=== PATIENT | male | born 1955 | race Caucasian/White ===

== ENCOUNTER 2017-10-17 03:51 | Inpatient (IN) | payer BC ==
[2017-10-17] MEDS: ATROPINE 0.5 MG/5 ML DISP.SYRIN. IV ×2 (03:54→04:03)
[2017-10-17] MEDS: EPINEPHrine SYRINGE 1 MG/10 ML SYRINGE IV (03:54)
[2017-10-17] MEDS ORDERED: NOREPINEPHRINE PREMIX 8 MG/250 ML BAG. IV (04:00)
[2017-10-17] MEDS: CALCIUM CHLORIDE 1,000 MG/10 ML DISP.SYRIN IV (04:06)
[2017-10-17] MEDS: SODIUM BICARB ADULT 8.4% 50 MEQ/50 ML DISP.SYRIN. IV (04:07)
[2017-10-17] MEDS ORDERED: NOREPINEPHRIN PREMIX 250 ML IV (04:13)
[2017-10-17] MEDS: IV NORMAL SALINE 1000ML BAG 1,000 ML IV ×10 (04:18→21:53)
[2017-10-17 04:20] LABS: BASE EXCESS ABG -10 mmol/L (-3-3); HCO3 ABG 19 mmol/L (21-28); PCO2 ABG 51 mmHg (35-46); PO2 ABG 167 mmHg (65-108); SAT O2 ABG 98 % (92-99)
[2017-10-17] MEDS: NOREPINEPHRIN PREMIX 250 ML IV (04:24)
[2017-10-17] MEDS ORDERED: fentaNYL PF VIAL 100 MCG/2 ML VIAL IV (04:30)
[2017-10-17] MEDS ORDERED: 0.9 % SODIUM CHLORIDE 10 ML DISP.SYRIN. IV (04:30)
[2017-10-17] MEDS ORDERED: MINERAL OIL/PETROLATUM,WHITE OPHTH OINT 3.5GM TUBE. OU (04:30)
[2017-10-17] MEDS ORDERED: VECURONIUM BOLUS 10 MG VIAL. IV (04:30)
[2017-10-17 04:53] LABS: AGAP ISTAT 17 mmol/L (6-14); BUN ISTAT 82 mg/dL (8-26); CHLORIDE ISTAT 112 mmol/L (98-110); CREATININE ISTAT 3.3 mg/dL (0.5-1.4); GLUCOSE ISTAT 343 mg/dL (70-99); HEMATOCRIT ISTAT 42 % (37-52); HEMOGLOBIN ISTAT 14.3 g/dL (14-18); ION CA ISTAT 0.94 mmol/L (1.13-1.32); POTASSIUM ISTAT 4.8 mmol/L (3.5-5.0); SODIUM ISTAT 139 mmol/L (135-145); TOT CO2 ISTAT 15 mmol/L (23-32)
[2017-10-17 04:55] LABS: BASO # 0.1 x10^3/uL (0.0-0.2); BASO % 1 % (0-3); EOS % 0 % (0-3); HEMATOCRIT 39.1 % (39.0-53.0); HEMOGLOBIN 12.8 g/dL (13.0-17.5); LYMPH # 1.1 x10^3/uL (1.0-4.8); LYMPH % 9 % (24-48); MEAN CORPUSCULAR HEMOGLOBIN 31 pg (25-35); MEAN CORPUSCULAR HGB CONC 33 g/dL (31-37); MEAN CORPUSCULAR VOLUME 93 fL (79-100); MONO # 0.2 x10^3/uL (0.0-1.1); MONO % 2 % (0-9); NEUT % 88 % (31-73); PLATELET COUNT 226 x10^3/uL (140-400); RED CELL DISTRIBUTION WIDTH 13.5 % (11.5-14.5); WHITE BLOOD COUNT 12.4 x10^3/uL (4.0-11.0)
[2017-10-17 04:59] LABS: TROPONIN BY ISTAT 0.07 ng/ml (<0.08)
[2017-10-17] MEDS: IOHEXOL 300 MG/ML 100ML VIAL. IV (05:00)
[2017-10-17] MEDS ORDERED: cefTRIAXone SODIUM 2 GM in IV DEXTROSE 5% 100 ML IV (05:00)
[2017-10-17 05:04] LABS: ADD MAN DIFF? YES
[2017-10-17 05:09] LABS: ANION GAP 17 (6-14); BLOOD UREA NITROGEN 87 mg/dL (8-26); BUN/CREATININE RATIO 23 (6-20); CALCIUM 9.3 mg/dL (8.5-10.1); CARBON DIOXIDE 22 mmol/L (21-32); CHLORIDE 103 mmol/L (98-107); CREATININE 3.8 mg/dL (0.7-1.3); GFR 16.2; GLUCOSE 373 mg/dL (70-99); SODIUM 142 mmol/L (136-145)
[2017-10-17 05:12] LABS: AMYLASE 184 U/L (25-115)
[2017-10-17 05:13] LABS: ACETAMIN < 2 mcg/ml (10-30); ETHANOL < 10 mg/dL (0-10); SALIC < 2.8 mg/dL (2.8-20.0)
[2017-10-17 05:15] LABS: ALBUMIN 2.9 g/dL (3.4-5.0); ALBUMIN/GLOBULIN RATIO 0.8 (1.0-1.7); ALK PHOS 174 U/L (46-116); ALT (SGPT) 43 U/L (16-63); AST (SGOT) 45 U/L (15-37); LIPASE 351 U/L (73-393); MAGNESIUM 2.5 mg/dL (1.8-2.4); TOTAL BILIRUBIN 0.5 mg/dL (0.2-1.0); TOTAL PROTEIN 6.6 g/dL (6.4-8.2)
[2017-10-17] MEDS ORDERED: CONTRAST GIVEN MC (05:15)
[2017-10-17 05:18] LABS: INR 1.2 (0.8-1.1); PROTHROMBIN TIME PATIENT 14.7 SEC (11.7-14.0)
[2017-10-17 05:19] LABS: PARTIAL THROMBOPLASTIN TIME 30 SEC (24-38)
[2017-10-17 05:21] LABS: NT-PRO BNP 1873 pg/mL (0-124); THYROID STIM HORMONE (TSH) 6.706 uIU/mL (0.358-3.74); TROPONINI 0.125 ng/mL (0.000-0.055)
[2017-10-17 05:30] LABS: CKMB INDEX 2.9 % (0-4); CKMB MASS 6.1 ng/mL (0.0-3.6); CREATINE KINASE 211 U/L (39-308)
[2017-10-17 05:42] LABS: LACTIC ACID 5.1 mmol/L (0.4-2.0)
[2017-10-17] MEDS: MEPERIDINE PF 25 MG/ML VIAL. IV (05:56)
[2017-10-17] MEDS: ACETAMINOPHEN 650 MG/20.3 ML SOLUTION. NG ×3 (06:00→17:09)
[2017-10-17 06:14] LABS: POC GLUCOSE 320 mg/dL (70-99)
[2017-10-17] MEDS: cefTRIAXone IV Push 2 GM VIAL. IVP (06:15)
[2017-10-17] MEDS ORDERED: CALCIUM CHLORIDE 1,000 MG in IV DEXTROSE 5% 50 ML IV (06:15)
[2017-10-17 06:20] LABS: FIO2 ABG 100; PH ABG 7.18 (7.35-7.45)
[2017-10-17] MEDS ORDERED: KETAMINE HCL 500 MG/10 ML VIAL. (06:23)
[2017-10-17] MEDS ORDERED: SUCCINYLCHOLINE 200 MG/10 ML VIAL. (06:23)
[2017-10-17 06:56] LABS: HEMATOCRIT 39.1 % (39.0-53.0); MEAN CORPUSCULAR HEMOGLOBIN 31 pg (25-35); MEAN CORPUSCULAR HGB CONC 33 g/dL (31-37); MEAN CORPUSCULAR VOLUME 93 fL (79-100); PLATELET COUNT 201 x10^3/uL (140-400); RED BLOOD COUNT 4.22 x10^6/uL (4.30-5.70); RED CELL DISTRIBUTION WIDTH 13.7 % (11.5-14.5); WHITE BLOOD COUNT 13.4 x10^3/uL (4.0-11.0)
[2017-10-17 06:58] LABS: ANION GAP 15 (6-14); BLOOD UREA NITROGEN 84 mg/dL (8-26); CALCIUM 8.7 mg/dL (8.5-10.1); CARBON DIOXIDE 21 mmol/L (21-32); CHLORIDE 105 mmol/L (98-107); CREATININE 3.6 mg/dL (0.7-1.3); GFR 17.2; GLUCOSE 347 mg/dL (70-99); PHOSPHORUS 6.6 mg/dL (2.6-4.7); SODIUM 141 mmol/L (136-145)
[2017-10-17 07:40] LABS: BASE EXCESS COOX -10 mmol/L (-3-3); BODY TEMP COOX 91.6 DEG; CARBON MONOXIDE 0.3 % (0.0-1.9); CORRECTED PCO2 COOX 28 mmHg; CORRECTED PH COOX 7.34; CORRECTED PO2 COOX 464 mmHg; HCO3 COOX 16 mmol/L (21-28); METHEMOGLOBIN 0.4 % (0.0-1.9); OXYHEMOGLOBIN 98.8 %; PCO2 COOX 34 mmHg (35-46); PH COOX 7.29 (7.35-7.45); PO2 COOX 489 mmHg (65-108); SAT O2 COOX 100 % (92-99); TOTAL HEMOGLOBIN 13.4 g/dL
[2017-10-17 07:43] LABS: FIO2 COOX 100
[2017-10-17 08:21] LABS: ALBUMIN 2.9 g/dL (3.4-5.0); ALK PHOS 157 U/L (46-116); ALT (SGPT) 44 U/L (16-63); AST (SGOT) 53 U/L (15-37); DIRECT BILIRUBIN 0.2 mg/dL (0.0-0.2); TOTAL BILIRUBIN 0.4 mg/dL (0.2-1.0); TOTAL PROTEIN 6.4 g/dL (6.4-8.2)
[2017-10-17 08:39] LABS: INFLUENZA A PATIENT NEGATIVE (NEGATIVE); INFLUENZA B PATIENT NEGATIVE (NEGATIVE); OBC FLU VALID
[2017-10-17] MEDS ORDERED: MORPHINE SULFATE 2 MG/ML DISP.SYRIN. IV (09:00)
[2017-10-17] MEDS: FAMOTIDINE 20 MG/2 ML VIAL IVP ×2 (09:27→21:52)
[2017-10-17] MEDS: ASPIRIN 300 MG SUPP.RECT PR (09:45)
[2017-10-17 10:25] LABS: % BANDS 8 % (0-9); % EOS 1 % (0-5); % LYMPHS 9 % (24-48); % MONOS 3 % (0-10); % SEGS 79 % (35-66); NUCLEATED RBC 1; PLATELET CLUMP PRESENT; PLT ESTIMATE ADEQUATE (ADEQUATE)
[2017-10-17] MEDS: PROPOFOL 100 ML IV ×2 (11:39→17:12)
[2017-10-17 12:56] LABS: HEMATOCRIT 40.7 % (39.0-53.0); HEMOGLOBIN 13.8 g/dL (13.0-17.5); MEAN CORPUSCULAR HEMOGLOBIN 31 pg (25-35); MEAN CORPUSCULAR HGB CONC 34 g/dL (31-37); MEAN CORPUSCULAR VOLUME 92 fL (79-100); PLATELET COUNT 211 x10^3/uL (140-400); RED BLOOD COUNT 4.45 x10^6/uL (4.30-5.70); RED CELL DISTRIBUTION WIDTH 13.7 % (11.5-14.5); WHITE BLOOD COUNT 10.9 x10^3/uL (4.0-11.0)
[2017-10-17 13:02] LABS: BILIRUBIN,URINE NEGATIVE (NEG); CLARITY,URINE CLOUDY; COLOR,URINE YELLOW; GLUCOSE,URINE >=1000 mg/dL (NEG); NITRITE,URINE NEGATIVE (NEG); PROTEIN,URINE >=300 mg/dL (NEG-TRACE); UROBILINOGEN,URINE 0.2 mg/dL (0.2 mg/dL)
[2017-10-17 13:08] LABS: ANION GAP 14 (6-14); BLOOD UREA NITROGEN 91 mg/dL (8-26); CALCIUM 7.6 mg/dL (8.5-10.1); CARBON DIOXIDE 19 mmol/L (21-32); CHLORIDE 105 mmol/L (98-107); CREATININE 3.4 mg/dL (0.7-1.3); GFR 18.4; GLUCOSE 378 mg/dL (70-99); PHOSPHORUS 4.8 mg/dL (2.6-4.7); POTASSIUM 4.6 mmol/L (3.5-5.1); SODIUM 138 mmol/L (136-145)
[2017-10-17 13:13] LABS: BARBITURATES NEG (NEG); BENZODIAZEPINES NEG (NEG); CANNABINOIDS NEG (NEG); COCAINE NEG (NEG); METHADONE NEG (NEG); OPIATES NEG (NEG); PHENCYCLIDINE NEG (NEG)
[2017-10-17 13:14] LABS: AMPHETAMINE/METHAMPHETAMINE NEG (NEG); ETHANOL, URINE NEG (NEG)
[2017-10-17 13:26] LABS: TROPONINI 0.502 ng/mL (0.000-0.055)
[2017-10-17 13:30] LABS: BACTERIA,URINE 0 /HPF (0-FEW); RBC,URINE 0 /HPF (0-2); SQUAMOUS EPITHELIAL CELL,UR MANY /LPF; WBC,URINE 0 /HPF (0-4)
[2017-10-17] MEDS: levETIRAcetam 500 MG in IV DEXTROSE 5% 100 ML IV ×2 (15:48→21:51)
[2017-10-17 16:38] LABS: MAGNESIUM 2.3 mg/dL (1.8-2.4)
[2017-10-17 16:39] LABS: BASE EXCESS ABG -10 mmol/L (-3-3); HCO3 ABG 16 mmol/L (21-28); PCO2 ABG 34 mmHg (35-46); PH ABG 7.29 (7.35-7.45); PO2 ABG 489 mmHg (65-108); SAT O2 ABG 100 % (92-99)
[2017-10-17 16:40] LABS: FIO2 ABG 100
[2017-10-17 16:42] LABS: ANION GAP 15 (6-14); BLOOD UREA NITROGEN 95 mg/dL (8-26); CARBON DIOXIDE 20 mmol/L (21-32); CHLORIDE 105 mmol/L (98-107); CREATININE 3.5 mg/dL (0.7-1.3); GFR 17.8; GLUCOSE 396 mg/dL (70-99); PHOSPHORUS 4.6 mg/dL (2.6-4.7); POTASSIUM 4.9 mmol/L (3.5-5.1); SODIUM 140 mmol/L (136-145)
[2017-10-17 16:45] LABS: ADD MAN DIFF? NO
[2017-10-17 16:45] LABS: TROPONINI 0.509 ng/mL (0.000-0.055)
[2017-10-17 16:47] LABS: BASO % 0 % (0-3); EOS % 0 % (0-3); HEMATOCRIT 43.8 % (39.0-53.0); HEMOGLOBIN 14.8 g/dL (13.0-17.5); LYMPH # 0.4 x10^3/uL (1.0-4.8); LYMPH % 4 % (24-48); MEAN CORPUSCULAR HEMOGLOBIN 31 pg (25-35); MEAN CORPUSCULAR HGB CONC 34 g/dL (31-37); MEAN CORPUSCULAR VOLUME 92 fL (79-100); MONO # 0.4 x10^3/uL (0.0-1.1); MONO % 4 % (0-9); NEUT # 8.5 x10^3uL (1.8-7.7); NEUT % 92 % (31-73); PLATELET COUNT 208 x10^3/uL (140-400); RED BLOOD COUNT 4.77 x10^6/uL (4.30-5.70); RED CELL DISTRIBUTION WIDTH 13.7 % (11.5-14.5); WHITE BLOOD COUNT 9.3 x10^3/uL (4.0-11.0)
[2017-10-17] MEDS: ONDANSETRON PF 4 MG/2 ML VIAL. IV (18:15)
[2017-10-17 20:39] LABS: ANION GAP 15 (6-14); BLOOD UREA NITROGEN 93 mg/dL (8-26); CALCIUM 7.1 mg/dL (8.5-10.1); CARBON DIOXIDE 17 mmol/L (21-32); CHLORIDE 108 mmol/L (98-107); CREATININE 3.5 mg/dL (0.7-1.3); GFR 17.8; GLUCOSE 336 mg/dL (70-99); PHOSPHORUS 5.1 mg/dL (2.6-4.7); SODIUM 140 mmol/L (136-145)
[2017-10-17 23:25] LABS: HEMATOCRIT 43.4 % (39.0-53.0); HEMOGLOBIN 14.5 g/dL (13.0-17.5); MEAN CORPUSCULAR HEMOGLOBIN 31 pg (25-35); MEAN CORPUSCULAR HGB CONC 34 g/dL (31-37); MEAN CORPUSCULAR VOLUME 93 fL (79-100); PLATELET COUNT 191 x10^3/uL (140-400); RED BLOOD COUNT 4.69 x10^6/uL (4.30-5.70); RED CELL DISTRIBUTION WIDTH 13.6 % (11.5-14.5); WHITE BLOOD COUNT 8.4 x10^3/uL (4.0-11.0)
[2017-10-17] MEDS: INSULIN REGULAR VIAL 150 UNIT in 0.9 % SODIUM CHLORIDE 150ML 150 ML IV (23:40)
[2017-10-18] MEDS: ACETAMINOPHEN 650 MG/20.3 ML SOLUTION. NG
[2017-10-18 00:43] LABS: ANION GAP 16 (6-14); BLOOD UREA NITROGEN 96 mg/dL (8-26); CALCIUM 7.7 mg/dL (8.5-10.1); CARBON DIOXIDE 18 mmol/L (21-32); CHLORIDE 107 mmol/L (98-107); CREATININE 3.5 mg/dL (0.7-1.3); GFR 17.8; GLUCOSE 313 mg/dL (70-99); PHOSPHORUS 5.2 mg/dL (2.6-4.7); POTASSIUM 4.8 mmol/L (3.5-5.1); SODIUM 141 mmol/L (136-145)
[2017-10-18 00:48] LABS: POC GLUCOSE 286 mg/dL (70-99)
[2017-10-18 00:48] LABS: POC GLUCOSE 273 mg/dL (70-99)
[2017-10-18] MEDS: PROPOFOL 100 ML IV ×3 (01:56→21:58)
[2017-10-18 03:39] LABS: POC GLUCOSE 230 mg/dL (70-99)
[2017-10-18 03:39] LABS: POC GLUCOSE 198 mg/dL (70-99)
[2017-10-18 04:02] LABS: POC GLUCOSE 152 mg/dL (70-99)
[2017-10-18] MEDS ORDERED: ACETAMINOPHEN 650 MG/20.3 ML SOLUTION. NG (04:30)
[2017-10-18] MEDS ORDERED: ACETAMINOPHEN 650 MG SUPP.RECT. PR (04:30)
[2017-10-18 04:41] LABS: ANION GAP 18 (6-14); BLOOD UREA NITROGEN 96 mg/dL (8-26); CALCIUM 7.5 mg/dL (8.5-10.1); CARBON DIOXIDE 18 mmol/L (21-32); CHLORIDE 109 mmol/L (98-107); CREATININE 3.5 mg/dL (0.7-1.3); GFR 17.8; GLUCOSE 182 mg/dL (70-99); PHOSPHORUS 5.3 mg/dL (2.6-4.7); POTASSIUM 4.4 mmol/L (3.5-5.1); SODIUM 145 mmol/L (136-145)
[2017-10-18 05:40] LABS: POC GLUCOSE 118 mg/dL (70-99)
[2017-10-18] MEDS: cefTRIAXone IV Push 2 GM VIAL. IVP (06:02)
[2017-10-18] MEDS: IV NORMAL SALINE 1000ML BAG 1,000 ML IV ×2 (06:03→17:43)
[2017-10-18 07:26] LABS: HEMATOCRIT 42.7 % (39.0-53.0); HEMOGLOBIN 14.1 g/dL (13.0-17.5); MEAN CORPUSCULAR HEMOGLOBIN 30 pg (25-35); MEAN CORPUSCULAR HGB CONC 33 g/dL (31-37); MEAN CORPUSCULAR VOLUME 91 fL (79-100); PLATELET COUNT 176 x10^3/uL (140-400); RED BLOOD COUNT 4.68 x10^6/uL (4.30-5.70); RED CELL DISTRIBUTION WIDTH 13.7 % (11.5-14.5); WHITE BLOOD COUNT 8.6 x10^3/uL (4.0-11.0)
[2017-10-18] MEDS: CHLORHEXIDINE 0.12% 15 ML MOUTHWASH. SWSP ×2 (09:00→20:45)
[2017-10-18] MEDS: ASPIRIN 300 MG SUPP.RECT PR (09:18)
[2017-10-18] MEDS: FAMOTIDINE 20 MG/2 ML VIAL IVP (09:18)
[2017-10-18] MEDS: levETIRAcetam 500 MG in IV DEXTROSE 5% 100 ML IV (09:19)
[2017-10-18 09:35] LABS: POC GLUCOSE 93 mg/dL (70-99)
[2017-10-18 09:35] LABS: POC GLUCOSE 105 mg/dL (70-99)
[2017-10-18 10:08] LABS: BASE EXCESS ABG -11 mmol/L (-3-3); CORRECTED PCO2 ABG 31 mmHg; CORRECTED PH ABG 7.29; CORRECTED PO2 ABG 59 mmHg; HCO3 ABG 15 mmol/L (21-28); PCO2 ABG 33 mmHg (35-46); PH ABG 7.26 (7.35-7.45); PO2 ABG 68 mmHg (65-108); SAT O2 ABG 93 % (92-99)
[2017-10-18 10:11] LABS: FIO2 ABG 60
[2017-10-18 10:22] LABS: POC GLUCOSE 91 mg/dL (70-99)
[2017-10-18] MEDS ORDERED: MAGNESIUM SULFATE 2GM 50 ML IV (10:45)
[2017-10-18 11:08] LABS: ALK PHOS 86 U/L (46-116); ALT (SGPT) 50 U/L (16-63); ANION GAP 15 (6-14); AST (SGOT) 73 U/L (15-37); BLOOD UREA NITROGEN 100 mg/dL (8-26); CALCIUM 7.4 mg/dL (8.5-10.1); CARBON DIOXIDE 19 mmol/L (21-32); CHLORIDE 109 mmol/L (98-107); CREATININE 3.6 mg/dL (0.7-1.3); DIRECT BILIRUBIN 0.1 mg/dL (0.0-0.2); GFR 17.2; GLUCOSE 106 mg/dL (70-99); PHOSPHORUS 6.7 mg/dL (2.6-4.7); POTASSIUM 5.3 mmol/L (3.5-5.1); SODIUM 143 mmol/L (136-145); TOTAL BILIRUBIN 0.4 mg/dL (0.2-1.0); TOTAL PROTEIN 5.8 g/dL (6.4-8.2)
[2017-10-18 11:13] LABS: CREATINE KINASE 945 U/L (39-308)
[2017-10-18 11:13] LABS: URIC ACID 10.5 mg/dL (3.5-7.2)
[2017-10-18 12:10] LABS: POC GLUCOSE 89 mg/dL (70-99)
[2017-10-18] MEDS ORDERED: LACOSAMIDE 200 MG TABLET PO (16:00)
[2017-10-18] MEDS ORDERED: LACOSAMIDE 50 MG TABLET PO (16:00)
[2017-10-18] MEDS: SODIUM BICARB ADULT 8.4% 50 MEQ/50 ML DISP.SYRIN. IV ×2 (16:17→16:30)
[2017-10-18] MEDS: LACOSAMIDE IV (17:42)
[2017-10-18] MEDS: NORMAL SALINE IV (17:42)
[2017-10-18 20:44] LABS: POC GLUCOSE 120 mg/dL (70-99)
[2017-10-18] MEDS: DEXAMETHASONE SOD PHOS 4 MG/ML VIAL IV (20:44)
[2017-10-18 20:48] LABS: HEMATOCRIT 37.8 % (39.0-53.0); HEMOGLOBIN 12.8 g/dL (13.0-17.5); MEAN CORPUSCULAR HEMOGLOBIN 31 pg (25-35); MEAN CORPUSCULAR HGB CONC 34 g/dL (31-37); MEAN CORPUSCULAR VOLUME 92 fL (79-100); PLATELET COUNT 151 x10^3/uL (140-400); RED CELL DISTRIBUTION WIDTH 13.8 % (11.5-14.5); WHITE BLOOD COUNT 10.7 x10^3/uL (4.0-11.0)
[2017-10-18 21:04] LABS: ANION GAP 18 (6-14); BLOOD UREA NITROGEN 106 mg/dL (8-26); CALCIUM 6.9 mg/dL (8.5-10.1); CARBON DIOXIDE 18 mmol/L (21-32); CHLORIDE 109 mmol/L (98-107); GFR 15.2; GLUCOSE 131 mg/dL (70-99); PHOSPHORUS 8.3 mg/dL (2.6-4.7); POTASSIUM 5.6 mmol/L (3.5-5.1); SODIUM 145 mmol/L (136-145)
[2017-10-18 21:10] LABS: LACTIC ACID 2.9 mmol/L (0.4-2.0)
[2017-10-18] MEDS: HEPARIN PF for SUB-Q USE 5,000 UNIT/0.5 ML VIAL. SQ (22:01)
[2017-10-19] MEDS: DEXAMETHASONE SOD PHOS 4 MG/ML VIAL IV ×5 (00:36→23:36)
[2017-10-19] MEDS: SODIUM POLYSTYRENE SULFONATE 15 GM/60 ML ORAL.SUSP. PO (00:36)
[2017-10-19] MEDS: IV NORMAL SALINE 1000ML BAG 1,000 ML IV (02:17)
[2017-10-19] MEDS: PROPOFOL 100 ML IV (03:17)
[2017-10-19] MEDS: ACETAMINOPHEN 650 MG/20.3 ML SOLUTION. PEG ×2 (03:17→08:56)
[2017-10-19] MEDS ORDERED: ELECTROLYTE (ICU) PROTOCOL. MC (04:30)
[2017-10-19 04:48] LABS: BILIRUBIN,URINE SMALL (NEG); CLARITY,URINE CLOUDY; COLOR,URINE AMBER; GLUCOSE,URINE NEGATIVE (NEG); NITRITE,URINE NEGATIVE (NEG); PROTEIN,URINE 30 mg/dL (NEG-TRACE); UROBILINOGEN,URINE 0.2 mg/dL (0.2 mg/dL)
[2017-10-19] MEDS: cefTRIAXone IV Push 2 GM VIAL. IVP (05:37)
[2017-10-19 05:43] LABS: AMORPHOUS SEDIMENT,UR PRESENT /HPF; BACTERIA,URINE FEW /HPF (0-FEW); RBC,URINE OCC /HPF (0-2); SQUAMOUS EPITHELIAL CELL,UR FEW /LPF
[2017-10-19 05:44] LABS: HYALINE CASTS, URINE MODERATE /HPF
[2017-10-19] MEDS: HEPARIN PF for SUB-Q USE 5,000 UNIT/0.5 ML VIAL. SQ ×3 (05:46→22:43)
[2017-10-19 06:23] LABS: HEMOGLOBIN 11.8 g/dL (13.0-17.5)
[2017-10-19 06:51] LABS: ALBUMIN 1.8 g/dL (3.4-5.0); ALK PHOS 78 U/L (46-116); ALT (SGPT) 50 U/L (16-63); ANION GAP 19 (6-14); AST (SGOT) 83 U/L (15-37); BLOOD UREA NITROGEN 110 mg/dL (8-26); CARBON DIOXIDE 14 mmol/L (21-32); CHLORIDE 107 mmol/L (98-107); CREATININE 4.5 mg/dL (0.7-1.3); DIRECT BILIRUBIN 0.2 mg/dL (0.0-0.2); GFR 13.3; GLUCOSE 222 mg/dL (70-99); MAGNESIUM 2.2 mg/dL (1.8-2.4); POTASSIUM 5.9 mmol/L (3.5-5.1); SODIUM 140 mmol/L (136-145); TOTAL BILIRUBIN 0.4 mg/dL (0.2-1.0); TOTAL PROTEIN 5.9 g/dL (6.4-8.2)
[2017-10-19 06:52] LABS: PHOSPHORUS 9.2 mg/dL (2.6-4.7)
[2017-10-19] MEDS: ASPIRIN 300 MG SUPP.RECT PR (08:56)
[2017-10-19] MEDS: SODIUM BICARB ADULT 8.4% 50 MEQ/50 ML DISP.SYRIN. IV ×3 (08:56→12:45)
[2017-10-19] MEDS: NORMAL SALINE IV ×2 (08:57→20:15)
[2017-10-19] MEDS: LACOSAMIDE IV ×2 (08:57→20:15)
[2017-10-19] MEDS: FAMOTIDINE 20 MG/2 ML VIAL IVP (08:57)
[2017-10-19] MEDS: CHLORHEXIDINE 0.12% 15 ML MOUTHWASH. SWSP ×2 (08:57→20:15)
[2017-10-19] MEDS: SODIUM BICARBONATE VIAL 150 MEQ in IV DEXTROSE 5% 1,000 ML IV ×2 (08:58→20:15)
[2017-10-19 09:11] LABS: BASE EXCESS ABG -11 mmol/L (-3-3); HCO3 ABG 15 mmol/L (21-28); PCO2 ABG 32 mmHg (35-46); PH ABG 7.29 (7.35-7.45); PO2 ABG 74 mmHg (65-108); SAT O2 ABG 93 % (92-99)
[2017-10-19 09:13] LABS: BODY TEMP ABG 99.3 DEG; CORRECTED PCO2 ABG 33 mmHg; CORRECTED PH ABG 7.28; CORRECTED PO2 ABG 76 mmHg
[2017-10-19 09:19] LABS: FIO2 ABG 70
[2017-10-19] MEDS: FLU VACC QS2017-18 (36MOS+)/PF 0.5 ML SYRINGE. VAX IM (10:30)
[2017-10-19 11:21] LABS: TOTAL PROTEIN CREATININE RATIO 905 mg/g creat (0-200); UR CREATININE RD 100.3 mg/dL (Not Estab.); UR PROTEIN RD 90.8 mg/dL (Not Estab.)
[2017-10-19 16:15] LABS: MRSA BY PCR Negative (Negative)
[2017-10-19] MEDS ORDERED: DEXTROSE 50% 25 GM / 50ML DISP.SYRIN. IV (21:45)
[2017-10-19] MEDS: INSULIN ASPART 300 UNITS/3 ML INSULN.PEN SQ (22:43)
[2017-10-20] MEDS: cefTRIAXone IV Push 2 GM VIAL. IVP (05:09)
[2017-10-20] MEDS: DEXAMETHASONE SOD PHOS 4 MG/ML VIAL IV ×2 (05:14→11:53)
[2017-10-20 05:56] LABS: ALBUMIN 1.7 g/dL (3.4-5.0); ANION GAP 20 (6-14); BLOOD UREA NITROGEN 132 mg/dL (8-26); CALCIUM 7.5 mg/dL (8.5-10.1); CARBON DIOXIDE 19 mmol/L (21-32); CHLORIDE 103 mmol/L (98-107); CREATININE 4.9 mg/dL (0.7-1.3); GFR 12.1; GLUCOSE 353 mg/dL (70-99); MAGNESIUM 2.5 mg/dL (1.8-2.4); POTASSIUM 4.8 mmol/L (3.5-5.1); SODIUM 142 mmol/L (136-145)
[2017-10-20 05:57] LABS: PHOSPHORUS 9.3 mg/dL (2.6-4.7)
[2017-10-20] MEDS: HEPARIN PF for SUB-Q USE 5,000 UNIT/0.5 ML VIAL. SQ ×2 (06:10→14:00)
[2017-10-20] MEDS: FAMOTIDINE 20 MG/2 ML VIAL IVP (08:13)
[2017-10-20] MEDS: ASPIRIN 300 MG SUPP.RECT PR (08:14)
[2017-10-20] MEDS: NORMAL SALINE IV (08:14)
[2017-10-20] MEDS: LACOSAMIDE IV (08:14)
[2017-10-20] MEDS: INSULIN ASPART 300 UNITS/3 ML INSULN.PEN SQ ×3 (08:24→17:00)
[2017-10-20] MEDS: CHLORHEXIDINE 0.12% 15 ML MOUTHWASH. SWSP (08:28)
[2017-10-20 08:36] LABS: POC GLUCOSE 327 mg/dL (70-99)
[2017-10-20] MEDS: SODIUM BICARBONATE VIAL 150 MEQ in IV DEXTROSE 5% 1,000 ML IV (09:29)
[2017-10-20] MEDS ORDERED: MORPHINE SULFATE 10 MG/ML VIAL. IM (17:00)
== END 2017-10-20 17:40 | disposition expired | DRG 208 ==
LOC: ER 03:51 → 1 WEST ICU 04:42
PROC: 05HM33Z Insertion of Infusion Device into Right Internal Jugular Vein, Percutaneous Approach (ICD-10-PCS; principal; 2017-10-17)
PROC: 5A1935Z Respiratory Ventilation, Less than 24 Consecutive Hours (ICD-10-PCS; 2017-10-17)
PROC: 5A12012 Performance of Cardiac Output, Single, Manual (ICD-10-PCS; 2017-10-17)
PROC: 5A1945Z Respiratory Ventilation, 24-96 Consecutive Hours (ICD-10-PCS; 2017-10-17)
PROC: B543ZZA Ultrasonography of Right Jugular Veins, Guidance (ICD-10-PCS; 2017-10-17)
PROC: 0BH17EZ Insertion of Endotracheal Airway into Trachea, Via Natural or Artificial Opening (ICD-10-PCS; 2017-10-17)
DX: J96.01 Acute respiratory failure with hypoxia (principal); I46.9 Cardiac arrest, cause unspecified; N17.0 Acute kidney failure with tubular necrosis; G04.91 Myelitis, unspecified; G93.1 Anoxic brain damage, not elsewhere classified; E66.01 Morbid (severe) obesity due to excess calories; I42.9 Cardiomyopathy, unspecified; G93.41 Metabolic encephalopathy; N18.6 End stage renal disease; I13.2 Hypertensive heart and chronic kidney disease with heart failure and with stage 5 chronic kidney disease, or end stage renal disease; E87.2 Acidosis; J93.9 Pneumothorax, unspecified; E11.21 Type 2 diabetes mellitus with diabetic nephropathy; E11.51 Type 2 diabetes mellitus with diabetic peripheral angiopathy without gangrene; E11.65 Type 2 diabetes mellitus with hyperglycemia; E11.22 Type 2 diabetes mellitus with diabetic chronic kidney disease; E11.59 Type 2 diabetes mellitus with other circulatory complications; E83.39 Other disorders of phosphorus metabolism; E88.09 Other disorders of plasma-protein metabolism, not elsewhere classified; G25.3 Myoclonus; G47.33 Obstructive sleep apnea (adult) (pediatric); H91.90 Unspecified hearing loss, unspecified ear; I25.10 Atherosclerotic heart disease of native coronary artery without angina pectoris; I50.9 Heart failure, unspecified; J44.9 Chronic obstructive pulmonary disease, unspecified; K59.00 Constipation, unspecified; R56.9 Unspecified convulsions; Z80.7 Family history of other malignant neoplasms of lymphoid, hematopoietic and related tissues; Z82.49 Family history of ischemic heart disease and other diseases of the circulatory system; Z86.718 Personal history of other venous thrombosis and embolism; Z51.5 Encounter for palliative care; Z98.49 Cataract extraction status, unspecified eye
CPT/HCPCS: 31500; 36415; 36556; 36600; 51702; 70450; 71045; 71250; 74176; 76770; 80047; 80048; 80053; 80069; 80076; 80307; 80329; 81001; 82150; 82550; 82553; 82570; 82805; 82962; 83605; 83690; 83735; 83880; 84100; 84156; 84300; 84443; 84484; 84550; 85007; 85018; 85025; 85027; 85610; 85730; 86850; 86900; 86901; 87040; 87641; 87804; 87804-59; 92950; 93005; 93306; 94002; 94003; 94760; 96365; 96375; 99291-25; C9254; G0480; J0171; J0461; J0696; J1100; J1265; J1815; J1953; J2060; J2175; J2405; J2704; J3010; J3490; J7030; S0028